=== PATIENT | female | born 1950 | race Caucasian/White ===

== ENCOUNTER 2022-12-03 06:59 | Day surgery (SDC) | payer MEDICARE ==
[2022-12-03] MEDS ORDERED: Sodium Chloride 0.9% 10 ML Syringe FLUSH PRN (07:00)
[2022-12-03] MEDS: Lactated Ringers 1,000 ML IV SCH (07:48)
[2022-12-03] MEDS ORDERED: Propofol 200 MG/20 ML SDV ONE (08:03)
[2022-12-03] MEDS ORDERED: Midazolam 1 MG/ML 2 ML SDV ONE (08:03)
[2022-12-03 14:32] VITALS: BP 126/69; PULSE 56
== END 2022-12-03 10:45 | disposition home or self-care (01) ==
LOC: KA.SDS 06:59
PROVIDERS: ATTEND Family Medicine
DX: Z12.11 Encounter for screening for malignant neoplasm of colon (principal); K63.89 Other specified diseases of intestine; K57.30 Diverticulosis of large intestine without perforation or abscess without bleeding; K64.4 Residual hemorrhoidal skin tags; K64.8 Other hemorrhoids; E66.01 Morbid (severe) obesity due to excess calories; I10 Essential (primary) hypertension; E78.00 Pure hypercholesterolemia, unspecified; B35.1 Tinea unguium; K21.9 Gastro-esophageal reflux disease without esophagitis; M19.90 Unspecified osteoarthritis, unspecified site; Z79.899 Other long term (current) drug therapy; Z98.890 Other specified postprocedural states; Z68.41 Body mass index [BMI] 40.0-44.9, adult
CPT/HCPCS: 00812; J2250; J2704; J7120